=== PATIENT | female | born 1995 | race Caucasian/White ===

== ENCOUNTER 2016-06-20 16:23 | Emergency (ER) | payer MEDICAID, OTHER ==
[~2016-06-20] VITALS: Ht 157.5 cm; Wt 71.0 kg
[2016-06-20 16:25] VITALS: Ht 157.5 cm; Wt 71.0 kg
[2016-06-20] MEDS ORDERED: ONDANSETRON (ODT) 4 MG TAB ODT STA (19:16)
[2016-06-20] MEDS ORDERED: BELLADONNA/PHENOBARBITAL TAB PO STA (19:16)
[2016-06-20] MEDS ORDERED: FAMOTIDINE 20 MG TAB PO STA (19:16)
[2016-06-20] MEDS ORDERED: LIDOCAINE/MYLANTA 40 ML BTL PO STA (19:16)
[2016-06-20 19:52] LABS: ADD SCAN DIFF NO
[2016-06-20 19:53] LABS: ADD UMIC YES; URINE BILIRUBIN (Dip) NEGATIVE (NEGATIVE); URINE BLOOD (Dip) 1+ (NEGATIVE); URINE COLOR LT. YELLOW (YELLOW); URINE GLUCOSE (Dip) NEGATIVE (NEGATIVE); URINE KETONES (Dip) NEGATIVE (NEGATIVE); URINE LEUKOCYTE ESTERASE (Dip) TRACE (NEGATIVE); URINE NITRITE (Dip) NEGATIVE (NEGATIVE); URINE TOTAL PROTEIN (Dip) TRACE (NEGATIVE); URINE UROBILINOGEN (Dip) 1.0 E.U./dL (0.1-1.0)
[2016-06-20 19:55] LABS: BASOPHILS % 0.1 % (0.0-2.0); EOSINOPHILS # 0.4 10^3/ul (0.0-0.5); EOSINOPHILS % 4.1 % (0.0-7.0); HEMATOCRIT 40.1 % (37.0-47.0); HEMOGLOBIN 13.5 g/dl (12.0-16.0); LYMPHOCYTES # 2.5 10^3/ul (0.8-2.9); LYMPHOCYTES % 28.3 % (15.0-51.0); MEAN CORPUSCULAR HEMOGLOBIN 31.4 pg (29.0-33.0); MEAN CORPUSCULAR HGB CONC 33.7 g/dl (32.0-37.0); MEAN CORPUSCULAR VOLUME 93.3 fl (82.0-101.0); MEAN PLATELET VOLUME 10.4 fl (7.4-10.4); MONOCYTE # 0.6 10^3/ul (0.3-0.9); MONOCYTES % 6.4 % (0.0-11.0); NEUTROPHIL # 5.4 10^3/ul (1.6-7.5); NEUTROPHILS % 60.9 % (39.0-77.0); PLATELET COUNT 298 10^3/UL (140-415); RED CELL DISTRIBUTION WIDTH 12.2 % (11.5-14.5); WHITE BLOOD COUNT 8.9 10^3/ul (4.8-10.8)
--- NOTE | 2016-06-20 19:59 | RADRPT ---
PROCEDURE: US Abdomen. CLINICAL INDICATION: abdominal pain TECHNIQUE: Multiple real-time images were acquired of the patient's right upper quadrant abdomen a nd retroperitoneum utilizing a high resolution transducer. COMPARISON: None FINDINGS: The liver demonstrates normal echogenicity. The liver is normal in size and no focal solid lesions are seen. The liver measures 14.0 cm in length. The portal vein is patent with normal direction of f low. No intrahepatic biliary dilatation is seen. There is a 1.6 cm calcified stone within the gallbladder. There is no pericholecystic fluid or gall bladder wall thickening. The common bile duct measures 4 mm in maximal dimension. The visualized portions of the pancreas are unremarkable. The tail of the pancreas is not seen. No free fluid is identified. The right kidney is normal in size, and demonstrate normal echogenicity and cortical thickness. The right kidney measures 9.2 cm in long dimension. There is no evidence of hydronephrosis. There are no kidney stones. RPTAT: AA IMPRESSION: Single calcified stone within the gallbladder. Otherwise unremarkable. .Dion Nina MD, Date Time Electronically viewed and signed by .Dion Nina MD, on 06/20/2016 19:59 .S/
[2016-06-20 20:07] LABS: BACTERIA,URINE FEW; SQUAMOUS EPITHELIAL CELL,UR MODERATE
[2016-06-20 20:09] LABS: ALBUMIN 4.5 g/dl (3.3-4.9)
[2016-06-20 20:10] LABS: POTASSIUM 3.8 mmol/L (3.5-5.1)
[2016-06-20 20:12] LABS: ALBUMIN/GLOBULIN RATIO 1.32; BILIRUBIN,INDIRECT 0.4 mg/dl (0-1.1); BILIRUBIN,TOTAL 0.4 mg/dl (0.2-1.3); CREATININE 0.58 mg/dl (0.44-1.00); TOTAL PROTEIN 7.9 g/dl (6.1-8.1)
[2016-06-20 20:13] LABS: CALCIUM 9.1 mg/dl (8.4-10.2)
[2016-06-20] MEDS ORDERED: FAMO-18 PO (20:27)
[2016-06-20] MEDS ORDERED: HYDR-906 PO (20:32)
[2016-06-20 20:43] VITALS: BP 117/68; PULSE 86; RESP 16; TEMP 98.9
--- NOTE | 2016-06-20 21:21 | ERD ---
ER Documentation Chief Complaint Date/Time DATE: 06/20/16 TIME: 21:19 Chief Complaint abd pain with n/vomiting x 2 days HPI This is a 20-year-old female presents to the ER with epigastric pain that started 2 days ago. Pain radiates up into her right upper quadrant. She admits to nausea and nonbilious nonbloody vomiting. She denies any diarrhea. Patient has not had any fevers or chills. Pain is described as burning in quality symptoms and is throbbing. Patient has not tried anything for the pain. Nothing makes it better or worse. ROS 12 point review of systems was done, all negative except per HPI. Medications Home Meds Active Scripts Hydrocodone/Acetaminophen ([place] 5-325 Tablet) 1 Each Tablet, 1 TAB PO Q6H Y for PAIN, #7 TAB Prov:APARNA ZHANG 06/20/16 Famotidine* (Pepcid*) 20 Mg Tablet, 20 MG PO BID for 4 Days, TAB Prov:LEATHAAPARNA C 06/20/16 PMhx/Soc Medical and Surgical Hx: pt denies Medical Hx, pt denies Surgical Hx Hx Alcohol Use: No Hx Substance Use: No Hx Tobacco Use: No Smoking Status: Never smoker Physical Exam Vitals Vital Signs Date Time Temp Pulse Resp B/P Pulse Ox O2 Delivery O2 Flow Rate FiO2 06/20/16 20:43 98.9 86 16 117/68 100 Room Air 06/20/16 16:25 98.9 102 16 133/68 98 Physical Exam GENERAL: The patient is well developed and appropriate for usual state of health , in no apparent distress. HEENT: Atraumatic. Conjunctivae are pink. Pupils equal, round, and reactive to light. Extraocular muscles are grossly intact. Bilateral tympanic membranes are clear with no evidence of erythema, effusion or dulling of the light reflex. The oropharynx is clear with no erythema or exudates. NECK: C-spine is soft and supple. There is no cervical lymphadenopathy. CHEST: Clear to auscultation bilaterally. There are no rales, wheezes or rhonchi. HEART: Regular rate and rhythm. No murmurs, clicks, rubs or gallops. ABDOMEN: Soft, nontender and nondistended. Good bowel sounds. No rebound or guarding. No gross peritonitis. No gross organomegaly or masses. No Mojica sign or McBurney point tenderness. BACK: No midline or flank tenderness. EXTREMITIES: Equal pulses bilaterally. There is no peripheral clubbing, cyanosis or edema. No focal swelling or erythema. Full range of motion. Grossly neurovascularly intact. NEURO: Alert and oriented. Cranial nerves II through XII are intact. Motor strength in all 4 extremities with 5/5 strength. Sensation grossly intact. Normal speech and gait. SKIN: There is no apparent rash or petechia. The skin is warm and dry. GENERAL: The patient is well developed and appropriate for usual state of health , in no apparent distress. HEENT: Atraumatic. CHEST: Clear to auscultation bilaterally. There are no rales, wheezes or rhonchi. HEART: Regular rate and rhythm. No murmurs, clicks, rubs or gallops. ABDOMEN: Soft, nontender and nondistended. Good bowel sounds. No rebound or guarding. No gross peritonitis. No gross organomegaly or masses. No Mojica sign or McBurney point tenderness. BACK: No midline or flank tenderness. NEURO: Alert and oriented. SKIN: There is no apparent rash or petechia. The skin is warm and dry. Result Diagram: 06/20/16193406/20/161934 Results 24 hrs Laboratory Tests Test 06/20/16 19:25 06/20/16 19:35 Urine Color LT. YELLOW Urine Clarity CLEAR Urine pH 6.0 Urine Specific [place] 1.025 Urine Ketones NEGATIVE Urine Nitrite NEGATIVE Urine Bilirubin NEGATIVE Urine Urobilinogen 1.0 E.U./dL Urine Leukocyte Esterase TRACE Urine Microscopic RBC 2-5/HPF Urine Microscopic WBC 0-2/HPF Urine Squamous Epithelial Cells MODERATE Urine Bacteria FEW Urine Hemoglobin 1+ Urine Glucose NEGATIVE% Urine Total Protein TRACE White Blood Count 8.910^3/ul Red Blood Count 4.3010^6/ul Hemoglobin 13.5g/dl Hematocrit 40.1% Mean Corpuscular Volume 93.3fl Mean Corpuscular Hemoglobin 31.4pg Mean Corpuscular Hemoglobin Concent 33.7g/dl Red Cell Distribution Width 12.2% Platelet Count 76229^3/UL Mean Platelet Volume 10.4fl Neutrophils % 60.9% Lymphocytes % 28.3% Monocytes % 6.4% Eosinophils % 4.1% Basophils % 0.1% Nucleated Red Blood Cells % 0.0/100WBC Neutrophils # 5.410^3/ul Lymphocytes # 2.510^3/ul Monocytes # 0.610^3/ul Eosinophils # 0.410^3/ul Basophils # 0.010^3/ul Nucleated Red Blood Cells # 0.010^3/ul Sodium Level 139mmol/L Potassium Level 3.8mmol/L Chloride Level 102mmol/L Carbon Dioxide Level 25mmol/L Anion Gap 16 Blood Urea Nitrogen 7mg/dl Creatinine 0.58mg/dl Glucose Level 94mg/dl Calcium Level 9.1mg/dl Total Bilirubin 0.4mg/dl Direct Bilirubin 0.00mg/dl Indirect Bilirubin 0.4mg/dl Aspartate Amino Transf (AST/SGOT) 16IU/L Alanine Aminotransferase (ALT/SGPT) 28IU/L Alkaline Phosphatase 56IU/L Total Protein 7.9g/dl Albumin 4.5g/dl Globulin 3.40g/dl Albumin/Globulin Ratio 1.32 Lipase 43U/L Current Medications Medications (Trade) Dose Ordered Sig/Haley Route PRN Reason Start Time Stop Time Status Last Admin Dose Admin Famotidine (Pepcid) 20 mg ONCE STAT PO 06/20/16 19:16 06/20/16 19:18 DC 06/20/16 19:37 Miscellaneous Medication (Gi Cocktail (2)) 40 ml ONCE STAT PO 06/20/16 19:16 06/20/16 19:18 DC 06/20/16 19:37 Belladonna/ Phenobarbital () 2 tab ONCE STAT PO 06/20/16 19:16 06/20/16 19:18 DC 06/20/16 19:37 Ondansetron HCl (Zofran Odt) 4 mg ONCE STAT ODT 06/20/16 19:16 06/20/16 19:18 DC 06/20/16 19:37 Procedures/MDM Differential Diagnosis: GERD, gastritis, peptic ulcer disease, pancreatitis, cholecystitis, choledocholithiasis, biliary colic, cholangitis, [id number] , ACS/NC, Pnuemonia. Patient does have one calcified gallstone. Patient may also have GERD. She did describe a burning sensation. Patient felt significantly better upon treatment here in the ER. At this time there is no evidence of cystitis. Patient is to follow-up with her primary care doctor within 1-2 days or return to ER sooner if symptoms worsen. My medical decision making was shared with the patient she understands and agrees with plan. Departure Diagnosis: Primary Impression: Gallstones Condition: Stable Patient Instructions: Treating Gallstones Additional Instructions: Llame al doctor MAANA y radha austin SABINO PARA DENTRO DE 1-2 BELL.Dgale a la secretaria que nosotros le instruimos hacer esta sabino.Avise o llame si aguilar condicin se empeora antes de la sabino. Regresa aqui si peor o no mejor. APARNA ZHANG June 20, 2016 21:21
== END 2016-06-20 20:43 | disposition home or self-care (01) ==
LOC: FTE 16:23
DX: K80.20 Calculus of gallbladder without cholecystitis without obstruction (principal); R11.2 Nausea with vomiting, unspecified
CPT/HCPCS: 36415; 76705; 80053; 81001; 83690; 85025; Z7502; Z7610; 81003